=== PATIENT | male | born 1975 ===

== ENCOUNTER 2025-07-12 07:13 | Day surgery (SDC) | payer OTHER ==
[2025-07-06 11:20] VITALS: BP 138/78
[2025-07-06 11:48] LABS: URINE APPEARANCE Clear; URINE BILIRRUBIN Negative (NEGATIVE); URINE BLOOD Negative; URINE COLOR Yellow; URINE GLUCOSE Negative (NEGATIVE); URINE KETONE Trace (NEGATIVE); URINE LEUKOCYTE Negative; URINE NITRATE Negative; URINE PROTEIN Negative (NEGATIVE); URINE UROBILINOGEN 1.0 E.U./dl
[2025-07-06 11:49] LABS: BASO % 1.1 % (0.1-1.2); EOS # 0.04 (0.04-0.54); EOS % 0.6 % (0.7-7.0); LYMPH # 1.61 (1.18-3.74); LYMPH % 25.0 % (19.3-53.1); MEAN PLATELET VOLUME 10.40 fl (9.4-12.4); MONO # 0.51 (0.24-0.82); MONO % 7.9 % (4.7-12.5); NEUT # 4.20 (1.56-6.13); NEUT % 65.2 % (34.0-71.1); RED CELL DISTRIBUTION WIDTH 15.2 % (11.6-14.4)
[2025-07-06 11:52] LABS: URINE EPITHELIAL CELLS 3.6 uL (0.0-38.8); URINE RBC 8.5 uL (0.0-20.8); URINE WBC 3.6 uL (0.0-23.2)
[2025-07-06 11:56] LABS: URINE BACTERIA 3.6 uL (0.0-1933); URINE CAST 0.58 uL (0.0-1.40)
[2025-07-06 12:21] LABS: INR 1.05
[2025-07-06 12:29] LABS: BUN CREA RATIO 19.0 (7.0-25.0); CREATININE SERUM 1.04 mg/dL (0.70-1.30); GFR 75.9; GLUCOSE FASTING 84.0 mg/dL (65-100); OSMOLALITY SERUM 281.0 MOSM/KG (275-295)
[~2025-07-12] VITALS: Ht 177.8 cm; Wt 75.3 kg
[~2025-07-12 07:13] MED LIST: BENICAR40 MG PO; FENOFIBRATE54 MG PO; LOVAZA1 GM PO; NORVASC5 MG PO
[2025-07-12] MEDS ORDERED: KETO10TA2 PO (10:27)
[2025-07-12] MEDS ORDERED: TRAMADOL HCL50 MG PO (10:27)
[2025-07-12] MEDS ORDERED: TYLENOL ARTHRI650 MG PO (10:27)
[2025-07-12] MEDS ORDERED: MIRALAX17 GM PO (10:27)
[2025-07-12] MEDS ORDERED: CEFAZOLIN SODIUM 1,000 MG VIAL IV ONE (11:00)
[2025-07-12] MEDS ORDERED: BUPIVACAINE HCL 30 ML VIAL IJ ONE (11:00)
[2025-07-12] MEDS ORDERED: MORPHINE SULFATE 4 MG/ML VIAL IV ONE (12:15)
== END 2025-07-12 13:25 | disposition home or self-care (01) ==
LOC: CIR.AMB 07:13
PROVIDERS: ATTEND Surgery
DX: K40.90 Unilateral inguinal hernia, without obstruction or gangrene, not specified as recurrent (principal)
CPT/HCPCS: 49650; C1781